=== PATIENT | male | born 1970 | race Caucasian/White ===

== ENCOUNTER 2020-10-17 13:30 | Emergency (ER) | payer SELFPAY ==
[2020-10-17 13:39] VITALS: BP 130/92; PULSE 76; RESP 16; TEMP 37.2; O2SAT 98
--- NOTE | 2020-10-17 13:56 | ED.WOUNDLAC ---
HPI - Wound/Laceration General Chief Complaint: Wound/Laceration Stated Complaint: Infection in knee Time Seen by Provider: 10/17/20 13:57 Source: patient, family and RN notes reviewed Mode of arrival: ambulatory Limitations: no limitations History of Present Illness HPI narrative: 50-year-old male who presents [facility] with complaints of red slightly raised warm and painful area to his left upper medial knee for the past 3 days. Patient states that area is very painful and that it has increased in size since first appearing, denies any know injury or insect bite to area, has not noted any drainage from area.Patient also has healing scabbed area to the outer aspect of his right lateral hand which started about 8 days ago. Patient states that he has been cleaning areas with antibacterial soap and applying Neosporin ointment to areas. 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 Patient states that he has had a previous abscess to his left arm which was I/D in ER and thinks his tetanus was updated at that time. Related Data Allergies Allergy/AdvReac Type Severity Reaction Status Date / Time Penicillins Allergy Mild Unknown Verified 10/30/18 07:36 Review of Systems Review of Systems: CONSTITUTIONAL: Denies fever, chills, or sweats. EYES: Denies visual changes, redness, or discharge. ENT: Denies rhinorrhea, congestion, sore throat, or otalgia. CARDIOVASCULAR: Denies chest pain, palpitations, or edema. RESPIRATORY: Denies cough or dyspnea. GASTROINTESTINAL: Denies abdominal pain, nausea, vomiting, or diarrhea. GENITOURINARY: Denies dysuria or hematuria. SKIN: red inflamed tissue which is warm and painful to the left upper medial knee and healing scabbed wound to lateral dorsal right hand MUSCULOSKELETAL: Denies back pain, joint pain, or myalgia. NEUROLOGIC: Denies headache, numbness, or weakness. PSYCHIATRIC: Denies anxiety or depression. All systems reviewed & are unremarkable except as noted in HPI and below PMFSH Past Medical History Medical History (Updated 10/19/20 @ 11:40 by Sofia Lake NP) Abscess of left forearm Fracture of left wrist STD (male) Surgical History Surgical History (Updated 10/19/20 @ 11:25 by Sofia Lake NP) History of surgery on left wrist ORIF Family History Family History (Updated 10/19/20 @ 11:26 by Sofia Lake NP) Mother Diabetes mellitus Cancer Social History Social History (Updated 10/19/20 @ 11:27 by Sofia Lake NP) Smoking packs per day: 1 Smoking cigarettes per day: 20.0 Years smoked: 15 Smoking pack-years: 15.00 Smoking status: Current every day smoker Tobacco type: cigarettes Alcohol intake: former Alcohol use details: no alcohol 12 years Substance use: current Substance use type: marijuana Last use: occasional Living arrangements: with family Gender identity (if verbalized by the patient): Male Exam Narrative: GENERAL: Well-appearing, well-nourished, and in no acute distress. HEAD: Normocephalic, atraumatic. EYES: PERRLA and EOMI. ENT: Nares clear, no rhinorrhea or epistaxis. Mucous membranes moist. NECK: Supple.no lymphadenopathy CHEST: Clear to auscultation. No respiratory distress.SAO2 98% on room air HEART: Regular rate and rhythm. No murmur heard. Normal peripheral pulses. ABDOMEN: Soft, nontender, nondistended, normal active bowel sounds. EXTREMITIES: Normal range of motion. No edema with exception to left upper medial aspect of left knee which is red and swollen and warm to touch which measures 7cm in diameter. Patient has no induration of tissue but is painful and warm to touch with no drainage. He also has healing scabbed wound area 3cm in diameter to right lateral dorsal hand which patient states has been there for 8 days. SKIN: Warm, dry, red inflamed tissue warm to touch to left knee and healing scabbed wound right lateral dorsal hand NEURO: No f
== END 2020-10-17 14:23 | disposition home or self-care (01) ==
PROVIDERS: Emergency Provider Registered Nurse
DX: L02.416 Cutaneous abscess of left lower limb (principal); L02.511 Cutaneous abscess of right hand; F17.210 Nicotine dependence, cigarettes, uncomplicated
CPT/HCPCS: 99213; G0463

== ENCOUNTER 2023-01-21 22:26 | Emergency (ER) | payer SELFPAY ==
--- NOTE | ~2023-01-21 | XR_ITS ---
EXAMINATION: XR hand LT min 3V DATE: 01/21/2023 22:52 INDICATION: Left hand foreign body. TECHNIQUE: 3 views of left hand were obtained. COMPARISON: None. FINDINGS: There is an old healed fracture of distal radius. There is 6 degrees palmar tilt of the dis joaquin articular surface. 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 Tuft of second distal phalanx is small, which may be from old trauma. 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 There is a 2 mm radiopaque foreign body palmar to 5th metacarpal. IMPRESSION: 1. 2 mm radiopaque foreign body palmar to 5th metacarpal. Reviewed, dictated and finalized at location E. PING ORDER CLERK
[2023-01-21 22:28] VITALS: BP 191/94; PULSE 83; RESP 18; TEMP 36.2; O2SAT 99
--- NOTE | 2023-01-21 22:46 | ED.GENADULT ---
HPI - General Adult General Chief complaint: Skin/Abscess/Foreign Body Stated complaint: L hand redness/swelling Time Seen by Provider: 01/21/23 22:39 Source: patient Mode of arrival: ambulatory Limitations: no limitations History of Present Illness HPI narrative: This is a 52-year-old male who presents to the ED for chief complaint of left hand redness and swelling onset x2 days. Patient reports that he works with his hands a lot, was using a chainsaw lately. He is concerned that there may be retained metal in the hand as he had to strike the chainsaw with a hammer. Reports increasing swelling, pain and redness throughout the hand today. States the pain is all in the dorsum of the hand and closer to the wrist. Denies fevers, chills, nausea, vomiting. Denies any immunocompromised condition. Related Data Allergies Allergy/AdvReac Type Severity Reaction Status Date / Time Penicillins Allergy Mild Unknown Verified 01/21/23 22:43 Review of Systems Review of Systems: All systems as dictated in [facility] Past Medical History Medical History (Updated 01/22/23 @ 00:06 by Philip Gardner PA-C) Abscess of left forearm Fracture of left wrist STD (male) Surgical History Surgical History (Updated 10/19/20 @ 11:25 by Sofia Lake NP) History of surgery on left wrist ORIF Family History Family History (Updated 10/19/20 @ 11:26 by Sofia Lake NP) Mother Diabetes mellitus Cancer Social History Social History (Updated 10/19/20 @ 11:27 by Sofia Lake NP) Smoking packs per day: 1 Smoking cigarettes per day: 20.0 Years smoked: 15 Smoking pack-years: 15.00 Smoking status: Current every day smoker Tobacco type: cigarettes Alcohol intake: former Alcohol use details: no alcohol 12 years Substance use: current Substance use type: marijuana Last use: occasional Living arrangements: with family Gender identity (if verbalized by the patient): Male Exam Narrative: GENERAL: Well-appearing, well-nourished, and in no acute distress. HEAD: Normocephalic, atraumatic. EYES: PERRLA and EOMI. ENT: Nares clear, no rhinorrhea or epistaxis. Mucous membranes moist. Oropharynx without tonsillar hypertrophy exudate or other lesions. NECK: Supple. No adenopathy or masses. CHEST: No respiratory distress. Clear to auscultation. No wheezes rales or rhonchi HEART: Regular rate and rhythm. No murmur heard. Normal peripheral pulses. ABDOMEN: Soft, nontender, nondistended, normal active bowel sounds. MSK: Negative Kan[place] signs. Nearly full active range of motion of the left hand. SKIN: Redness and swelling throughout the dorsum of the left hand. Tenderness most pronounced at the ulnar wrist. Scattered papules noted. No bullous lesions. No induration or fluctuant region consistent with abscess. NEURO: Alert and oriented x3. No focal deficits. PSYCH: Normal mood and affect. Course Vital Signs Vital signs: Vital Signs Temperature 97.1 F L 01/21/23 22:28 Pulse Rate 83 01/21/23 22:28 Respiratory Rate 18 01/21/23 22:28 Blood Pressure 191/94 H 01/21/23 22:28 Pulse Oximetry 99 01/21/23 22:28 Oxygen Delivery Room Air 01/21/23 22:28 Temperature 97.1 F L 01/21/23 22:28 Pulse Rate 83 01/21/23 22:28 Respiratory Rate 18 01/21/23 22:28 Blood Pressure 191/94 H 01/21/23 22:28 Pulse Oximetry 99 01/21/23 22:28 Oxygen Delivery Room Air 01/21/23 22:28 Medical Decision Making [facility] Narrative Medical decision making narrative: This is a 52-year-old male who presents to ED with chief complaint of left hand redness and swelling for the past 3 days. Vitals are stable. Blood pressure elevated. Afebrile. Exam does reveal diffuse swelling and redness to the dorsum of the left hand. Neurovascularly intact. No abscess identified or palpated. Symptoms consistent with cellulitis. CBC and CMP unremarkable. CRP is elevated. Lactic acid is normal. X-ray
[2023-01-21] MEDS: MORPHINE SULFATE (*CRX) 4 MG/ML INJ IV PUSH (23:07)
[2023-01-21] MEDS: SODIUM CHLORIDE 0.9% IV 1,000 ML 999 ML IV CONT (23:07)
[2023-01-21 23:12] VITALS: PULSE 78; RESP 20; O2SAT 100
[2023-01-21 23:15] LABS: Basophils Percent Auto 0.4 % (0.2-1.2); Eosinophils Absolute Auto 0.2 K/mm3 (0-0.3); Eosinophils Percent Auto 2.2 % (0-4.4); Hematocrit 40.4 % (42.0-52.0); Immature Granulocyte Absolute 0.03 K/mm3 (0.00-0.031); Immature Granulocyte Percent A 0.3 % (0-0.5); Lymphocytes Absolute Auto 2.61 K/mm3 (0.9-3.2); Lymphocytes Percent Auto 26.8 % (18.3-44.2); Mean Corpuscular HGB Conc 32.2 g/dl (32-36); Mean Corpuscular Hemoglobin 28.6 pg (26-34); Mean Platelet Volume 9.2 fl (7.4-10.4); Monocytes Absolute Auto 0.9 K/mm3 (0.1-0.6); Monocytes Percent Auto 9.5 % (2.6-8.5); Neutrophils Absolute Auto 5.9 K/mm3 (1.3-6.7); Neutrophils Percent Auto 60.8 % (45.5-73.1); Platelet Count Result 261 k/mm3 (150-375); Red Blood Count 4.54 M/mm3 (4.6-6.20); White Blood Count 9.7 K/mm3 (4.5-10.0)
[2023-01-21 23:24] LABS: Lactic Acid Reflex 1.4 mmol/L (0.7-2.0)
[2023-01-21 23:28] LABS: Alanine Aminotransferase 35 U/L (6-50); Alkaline Phosphatase 103 U/L (38-126); Anion Gap 12 mmol/L (8-16); Aspartate Amino Transferase 37 U/L (17-59); Bilirubin,Total 0.3 mg/dL (0.2-1.3); Blood Urea Nitrogen 24 mg/dL (9-20); CRP 5.8 mg/dL (<1.0); Calcium 8.6 mg/dL (8.4-10.2); Carbon Dioxide 24 mmol/L (22-30); Chloride 104 mmol/L (98-107); Estimated CRCL calculation 89 ml/min; Estimated Glomerular Filt Rate > 60; Glucose 115 mg/dL (65-110); Potassium 3.8 mmol/L (3.4-5.0); Sodium 140 mmol/L (137-145)
[2023-01-21] MEDS: ceFAZolin 1 GM/NS 50 ML 1 GM/50 ML BAG IVPB (23:29)
[2023-01-22 00:35] VITALS: PULSE 75; RESP 19; O2SAT 100
[2023-01-22] MEDS: TETANUS,DIPHTHERIA,AC PERTUSSIS ADULT (0.5 ML) BOOSTRIX IM (00:35)
[2023-01-22 00:41] VITALS: PULSE 79; RESP 18; O2SAT 100
== END 2023-01-22 00:41 | disposition home or self-care (01) ==
PROVIDERS: Emergency Provider Physician Assistant
DX: L03.114 Cellulitis of left upper limb (principal); F17.210 Nicotine dependence, cigarettes, uncomplicated; Z23 Encounter for immunization
CPT/HCPCS: 36415; 73130; 80053; 83605; 85025; 86140; 90471; 90715; 96365; 96375; 99284; J0690; J2270; J7030